=== PATIENT | female | born 1975 | race Caucasian/White ===

== ENCOUNTER 2018-02-26 17:39 | Emergency (ER) | payer OTHER ==
[~2018-02-26] VITALS: Ht 162.6 cm; Wt 72.6 kg
[~2018-02-26 17:39] MED LIST: ALBU90OI INH; BUTASPCAFT PO; CEPH500 PO; CETI10 PO; CITA20 PO; CODACE30 PO; CODBUTASA; CODBUTASA PO; DIET PILL; DOXY100 PO; FERR160 PO; FEXO60; FEXPSEER; HYDACE5 PO; HYDGUAL120 PO; IBUP400 PO; IRON PILLS; METO50ER PO; MOXI400 PO; MULVITMINE; MULVITMINF PO; NAPR500 PO; OMEP20ER PO; OXYACE5T PO; OXYACE7.5T PO; PHENA200 PO; PRED10 PO; Polytrim Eye Dr10 ML BOTHEYES; Prednisone20 MG PO; RXCODACET PO; RXDIPHSY PO; RXHYDACE PO; RXPHEN200 PO; SULTRIDS PO; TOBDEXOPSU OP; VIMOVO PO; ZOLP5 PO; [UNRECOGNIZED DRUG - OTHER] PO
== END 2018-02-26 18:39 | disposition home or self-care (01) ==
LOC: ER 17:39
DX: S61.213A Laceration without foreign body of left middle finger without damage to nail, initial encounter (principal); Z23 Encounter for immunization; I10 Essential (primary) hypertension; Z88.5 Allergy status to narcotic agent; Z88.1 Allergy status to other antibiotic agents; Z79.899 Other long term (current) drug therapy; Z87.891 Personal history of nicotine dependence; W28.XXXA Contact with powered lawn mower, initial encounter
CPT/HCPCS: 12001; 90471; 90714; 99283

== ENCOUNTER 2019-03-24 15:14 | Emergency (ER) | payer OTHER ==
[~2019-03-24] VITALS: Ht 162.6 cm; Wt 74.8 kg
[~2019-03-24 15:14] MED LIST changes: +AMIT50 PO; +DUOFER 28 MG TA28 MG PO; +Echinacea400 MG PO; +MAGNESIUM400 MG PO; +VERA180ERB PO
[2019-03-24] MEDS ORDERED: NEOSPORIN + P14.2 GM TOP (15:46)
[2019-03-24] MEDS ORDERED: CEPH500 PO (15:46)
== END 2019-03-24 15:57 | disposition home or self-care (01) ==
LOC: ER 15:14
DX: L01.00 Impetigo, unspecified (principal); Z88.5 Allergy status to narcotic agent; Z88.8 Allergy status to other drugs, medicaments and biological substances; Z88.1 Allergy status to other antibiotic agents; Z79.899 Other long term (current) drug therapy; Z79.82 Long term (current) use of aspirin; I10 Essential (primary) hypertension; Z87.891 Personal history of nicotine dependence
CPT/HCPCS: 99283

== ENCOUNTER 2021-06-05 20:05 | Inpatient (IN) | payer OTHER ==
[~2021-06-05] VITALS: Ht 162.6 cm; Wt 104.3 kg
[~2021-06-05 20:05] MED LIST changes: +MAGNESIUM OXID500 MG PO; -MAGNESIUM400 MG PO; +NEOSPORIN + P14.2 GM TOP
[2021-06-05 20:33] LABS: BASOPHILS ABSOLUTE AUTO 0.04 K/mm3 (0.00-0.23); BASOPHILS PERCENT AUTO 1 % (0-2); EOSINOPHILS PERCENT AUTO 0 % (0-6); Hematocrit 39.1 % (33.0-51.0); Hemoglobin 13.3 g/dL (11.5-16.0); IMMATURE GRAN PERCENT AUTO 4 % (0-1); LYMPHOCYTES ABSOLUTE AUTO 0.95 K/mm3 (0.84-5.20); LYMPHOCYTES PERCENT AUTO 18 % (21-46); MONOCYTES ABSOLUTE AUTO 0.49 K/mm3 (0.16-1.47); MONOCYTES PERCENT AUTO 10 % (4-13); Mean Corpuscular HGB 29.2 pg (26.0-34.0); Mean Corpuscular Volume 86 fL (80-100); NEUTROPHILS ABSOLUTE AUTO 3.47 K/mm3 (1.96-9.15); NEUTROPHILS PERCENT AUTO 67 % (41-73); Platelet Count 212 K/mm3 (150-400); RDW Standard Deviation 38.1 fL (35.1-46.3); Red Blood Cell Count 4.56 M/mm3 (3.80-5.20); White Blood Cell Count 5.15 K/mm3 (4.00-11.30)
[2021-06-05 20:53] LABS: Alanine Aminotransfer (ALT/SGP 124 U/L (12-78); Albumin, Blood 2.7 g/dL (3.4-5.0); Albumin/Globulin Ratio 0.6 (0.8-1.8); Alk Phos 200 U/L (50-136); Anion Gap 7 mmol/L (6-16); Aspartate Aminotrans (AST/SGOT 115 U/L (12-37); Bilirubin, Total 0.3 mg/dL (0.1-1.0); Blood Urea Nitrogen 16 mg/dL (8-24); CO2, Blood 26 mmol/L (21-32); Chloride, Blood 104 mmol/L (98-108); Creatinine, Blood 0.64 mg/dL (0.40-1.00); Globulin, Blood 4.3 g/dL (2.2-4.0); Glomerular Filtration Rate >60 (60-); Glucose, Blood 99 mg/dL (70-99); Potassium, Blood 3.7 mmol/L (3.5-5.5); Sodium, Blood 137 mmol/L (136-145); Troponin I <0.015 ng/mL (0.000-0.040)
[2021-06-05] MEDS ORDERED: CEFUROXIME SOD1.5 GM (21:08)
[2021-06-05] MEDS ORDERED: CITALOPRAM HBR20 M3 PO (21:23)
[2021-06-05] MEDS ORDERED: AMITRIPTYLINE H25 MG PO (21:23)
[2021-06-05] MEDS ORDERED: METO50ER PO (21:23)
[2021-06-05] MEDS ORDERED: ZYRTEC10 M4 PO (21:24)
[2021-06-05] MEDS ORDERED: BUTALBITAL COM1 EACH PO (21:25)
--- NOTE | 2021-06-06 19:57 | NUR ---
PT ADMITTED FROM ED 1045 FROM ED. PT SLIDE TX TO BED. ORIENTED TO ROOM SET UP AND CALL LIGHT.
--- NOTE | 2021-06-06 19:59 | NUR ---
SUMMARY- PT A/OX4. KNOWS LIMITS. USES CALL LIGHT. USING BEDPAN BECAUSE PT HAVING SEVERE EXERTIONAL DYSPNEA. LUNGS WITH DIM BASES, FEELS LIKE A HUGE BUBBLE IN THE CENTER OF HER CHEST IS CAUGHT. OXYMIZER 10L, SATS 95%, BROUGHT DOWN TO 8L. TOLERATING FOOD AND FLUIDS. DENIES PAIN ALTHOUGH TAKES NAPROXYN AM AND PM FOR GEN BODY PAIN. DR CLOUD BY TO MANAS PT APPROX 1600. TELE SR 80'S. REPORTED TO RICARDO MARTÍNEZ.
[2021-06-06] MEDS ORDERED: CEFU500T30 PO (23:38)
[2021-06-06] MEDS ORDERED: Guaifenesin Wit10 ML PO (23:40)
--- NOTE | 2021-06-06 23:52 | NUR ---
2051 PT LYING IN BED, REPORTS PAIN IN CHEST R/T COUGH AND PAIN IN JOINTS R/T CHRONIC CONDITION OF 5/10, WILL MEDICATE AND EVAL FOR EFFECT. REPORTS A LITTLE SOB THAT INCREASES WITH EXERTION, ON 8L O2 VIA OXIMIZER AT 94%. NO OTHER APPARENT SIGNS OF DISTRESS. CALL LIGHT IS IN REACH.
--- NOTE | 2021-06-07 00:56 | NUR ---
PT LYING IN BED, EYES CLOSED, APPEARS TO BE RESTING. BREATHING IS EVEN, UNLABORED. NO APPARENT SIGNS OF DISTRESS. CALL LIGHT IS IN REACH.
--- NOTE | 2021-06-07 02:47 | NUR ---
0230 PT LYING IN BED, AWAKE, DENIES NEED FOR ANYTHING AT THIS TIME. NO APPARENT SIGNS OF DISTRESS. CALL LIGHT IS IN REACH.
--- NOTE | 2021-06-07 04:20 | NUR ---
PT LYING IN BED, EYES CLOSED, APPEARS TO BE RESTING. BREATHIG IS EVEN, UNLABORED. NO APPARENT SIGNS OF DISTRESS. CALL LIGHT IS IN REACH.
--- NOTE | 2021-06-07 04:20 | NUR ---
PT IS AAO X 4, ON OXIMIZER WITH 86 O2 AT 92%. PT REPORTS A LITTLE SOB THAT INCREASES WITH EXERTION. PT REPORTED CHEST PAIN R/T TO COUGH AND CHRONIC JOINT PAIN. PT GOT NAPROSYN AND MINNIESIN AT HS. TELE NSR. BS WAS 124.
--- NOTE | 2021-06-07 05:43 | NUR ---
PT LYING IN BED, EYES CLOSED, APPEARS TO BE RESTING. BREATHING IS EVEN, UNLABORED. NO APPARENT SIGNS OF DISTRESS. CALL LIGHT IS IN REACH. NO OTHER CHANGES THIS SHIFT.
--- NOTE | 2021-06-07 19:15 | NUR ---
DAFNE- PT A/O X4, USES CALL LIGHT. UP TO BSC TODAY TO VOID. DESATS INTO MID 80'S WITH ACTIVITY OR COUGHING EPISODES. LUNGS CRACKLES IN THE BASES, OXIMYZER DOWN FROM 8-6 AT 0745, HAS BEEN 91-94% EXCEPT WITH DESAT WITH ACTIVITY. PT HAS LITTLE ENERGY AND SLOW MOVING BUT ADQ STRENGTH FOR STANDING. TOLERATING FOOD AND FLUIDS, STATES SLIGHT DECREASE IN APPETITE. URINE CONCENTRATED THIS AM, ENC PO FLUIDS, AND CONSUMED HOT TEA AND LEMONAID T/O THE DAY. PT UNABLE TO LAY PRONE RELATED TO BACK ISSUES. CHRONIC JOINT PAIN CONTROLLED WITH NAPARSYN. COUGH MED/ ROBITUSSIN GIVEN ONCE THIS AFTERNOON.
--- NOTE | 2021-06-07 21:43 | NUR ---
2021 PT LYING IN BED, REPORTS A LITTLE SOB THAT INCREASES WITH EXERTION, ON 6L VIA OXIMIZER AT 91%. REPORTS EXHAUSTION. BS WAS 155. TELE NSR AT 81. NO OTHER APPARENT SIGNS OF DISTRESS. CALL LIGHT IS IN REACH.
--- NOTE | 2021-06-07 23:07 | NUR ---
PT LYING IN BED, EYES CLOSED, APPEARS TO BE RESTING. BREATHING IS EVEN, UNLABORED. NO APPARENT SIGNS OF DISTRESS. CALL LIGHT IS IN REACH.
--- NOTE | 2021-06-08 00:12 | NUR ---
PT LYING IN BED, EYES CLOSED, APPEARS TO BE RESTING. BREATHING IS EVEN, UNLABORED. NO APPARENT SIGNS OF DISTRESS. CALL LIGHT IS IN REACH.
--- NOTE | 2021-06-08 01:59 | NUR ---
PT LYING IN BED, EYES CLOSED, APPEARS TO BE RESTING. BREATHING IS EVEN, UNLABORED. NO APPARENT SIGNS OF DISTRESS. CALL LIGHT IS IN REACH.
--- NOTE | 2021-06-08 03:27 | NUR ---
PT LYING IN BED, EYES CLOSED, APPEARS TO BE RESTING. WAKES EASILY TO VERBAL STIMULI. NO APPARENT SIGNS OF DISTRESS. CALL LIGHT IS IN REACH.
--- NOTE | 2021-06-08 03:29 | NUR ---
PT IS AAO X 4, ON 6L OXIMIZER AT 91%. A LITTLE SOB THAT INCREASES WITH EXERTION. TELE NSR. BS 155.
--- NOTE | 2021-06-08 19:46 | NUR ---
a+o, medicated as prescribed, oximizer on 6 L, call light in reach, report shared with noc nurse
--- NOTE | 2021-06-09 04:52 | NUR ---
TRANSMITTER SUPERVISOR SUMMARY NO ACUTE CHANGES THIS SHIFT. PT AAOX4 AND PLEASANT. CALLS APPROPRIATELY FOR ASSISTANCE. REMAINS ON 6L O2 VIA OXYMIZER SATTING MID 90'S. PT DOES DESAT TO 80'S WHEN GETTING UP TO BSC. CBG 130 AT BEDTIME. VSS, WILL CONTINUE TO MONITOR.
--- NOTE | 2021-06-09 16:49 | NUR ---
SHIFT SUMMARY PT NEEDING ASSIST WITH TRANSFER TO COMMODE. BECOMES VERY WINDED AND TIRED WITH ANY ACTIVITY. STATES SHE STRUGGLES TO LAY ON HER SIDE DUE TO INCREASE IN SHORTNESS OF BREATH. CONTINUOUS PULSE OX WITH BLUE TOOTH SATS IN LOW 90'S ON 6L/M BY OXIMIZER BUT DOES DROP TO MID 80'S WITH ANY ACTIVITY. HAS A COUGH THAT IS NON PRODUCTIVE BUT MOIST.
--- NOTE | 2021-06-10 04:53 | NUR ---
FUSING MACHINE FEEDER SUMMARY NO ACUTE CHANGES THIS SHIFT. PT REMAINS ON 9L O2 VIA OXYMIZER. SATS HAVE MAINTAINED >90% THROUGH THE NIGHT WITH A SLIGHT DESAT TO HIGH 80'S WHEN GETTING UP TO BSC. WILL CONTINUE TO MONITOR.
[2021-06-10 05:26] LABS: BASOPHILS ABSOLUTE AUTO 0.06 K/mm3 (0.00-0.23); BASOPHILS PERCENT AUTO 1 % (0-2); EOSINOPHILS ABSOLUTE AUTO 0.05 K/mm3 (0.00-0.68); EOSINOPHILS PERCENT AUTO 1 % (0-6); Hematocrit 37.9 % (33.0-51.0); Hemoglobin 12.6 g/dL (11.5-16.0); IMMATURE GRAN ABSOLUTE AUTO 0.63 K/mm3 (0.00-0.10); IMMATURE GRAN PERCENT AUTO 10 % (0-1); LYMPHOCYTES PERCENT AUTO 17 % (21-46); MONOCYTES ABSOLUTE AUTO 0.43 K/mm3 (0.16-1.47); MONOCYTES PERCENT AUTO 7 % (4-13); Mean Corpuscular HGB 28.8 pg (26.0-34.0); Mean Corpuscular HGB Conc 33.2 g/dL (31.5-36.5); Mean Corpuscular Volume 87 fL (80-100); Mean Platelet Volume 9.1 fL (9.1-12.4); NEUTROPHILS ABSOLUTE AUTO 4.28 K/mm3 (1.96-9.15); NEUTROPHILS PERCENT AUTO 65 % (41-73); Platelet Count 324 K/mm3 (150-400); RDW Standard Deviation 38.1 fL (35.1-46.3); Red Blood Cell Count 4.38 M/mm3 (3.80-5.20); White Blood Cell Count 6.55 K/mm3 (4.00-11.30)
[2021-06-10 05:46] LABS: Anion Gap 5 mmol/L (6-16); Blood Urea Nitrogen 19 mg/dL (8-24); Bun/Creatinine Ratio 30.4 (12.0-20.0); CO2, Blood 27 mmol/L (21-32); Calcium, Blood 8.7 mg/dL (8.5-10.1); Chloride, Blood 105 mmol/L (98-108); Creatinine, Blood 0.62 mg/dL (0.40-1.00); Glomerular Filtration Rate >60 (60-); Glucose, Blood 97 mg/dL (70-99); Potassium, Blood 3.8 mmol/L (3.5-5.5); Sodium, Blood 137 mmol/L (136-145)
[2021-06-10 05:52] LABS: BAND PERCENT MAN 1 % (0-8); BASOPHILS PERCENT MAN 0 % (0-2); EOSINOPHILS ABSOLUTE MAN 0.06 K/mm3 (0.00-0.68); EOSINOPHILS PERCENT MAN 1 % (0-6); LYMPHOCYTES ABSOLUTE MAN 1.37 K/mm3 (0.84-5.20); LYMPHOCYTES PERCENT MAN 21 % (21-46); MONOCYTES ABSOLUTE MAN 0.19 K/mm3 (0.16-1.47); MONOCYTES PERCENT MAN 3 % (4-13); MYELOCYTE ABSOLUTE MAN 0.39 K/mm3 (0.00-0.00); MYELOCYTE PERCENT MAN 6 % (0-0); NEUTROPHILS ABSOLUTE MAN 4.51 K/mm3 (1.96-9.15); SEG NEUTROPHILS PERCENT MAN 68 % (41-73); TOTAL CELLS COUNTED 100
--- NOTE | 2021-06-10 11:00 | NUR ---
Spiritual Care visit provided. Pt is struggling with what she feels is setback physically. I encouraged her and reinforced that she is in the right place: it is her daughter's 13th birthday today so she is missing her family. I was able to pray for her recovery and that when she was able to go home, there would be a double celebration for her return and her daughter's birthday.
--- NOTE | 2021-06-10 18:14 | NUR ---
PT IS A/OX4, PLEASANT AND COOPERATIVE. THE PT IS UP WITH ASSIST TO THE BSC BECAUSE OF WEAKNESS AND SOB. THE PT'S O2 HAS BEEN TITRATED DOWN TO 7L/MIN FROM 15L/MIN THIS AFTERNOON. PT DESATS WITH MINIMAL ACTIVITY BUT RECOVERS FAIRLY QUIKLY. PT DENIED ANY PAIN THIS SHIFT. CALL LIGHT IN REACH, WILL CONTINUE TO MONITOR AND ASSESS FOR CHANGES
--- NOTE | 2021-06-11 06:39 | NUR ---
SHIFT SUMMARY- PT. ON 7L OXYMIZER, DESATS W/ACTIVIY. HAD NO COMPLAINTS OF PAIN OR DISCOMFORT DURING THE NIGHT. NOSEBLEED THIS AM, PT. STATED DUE TO DRYNESS. USES BSC W/1PA. DENIES ANY NEEDS AT THIS TIME. CALL LIGHT WITHIN REACH AND SIDE RAILS UPX2. WILL CONT TO MONITOR.
--- NOTE | 2021-06-11 18:32 | NUR ---
PT IS A/OX3, PLEASANT AND COOPERATIVE. THE PT IS UP WITH MINIMAL ASSIT TO THE BSC. THE PT CONTINUES TO BE VERY WEAK ON HER FEET AND O2 SAT'S DROP TO MID 80'S. AT REST THE PT APPEARS TO BE BREATHING EASILY STILL REQUIRING 7/MIN O2 VIA OXYMIZER AT THIS TIME. PT DENIED ANY PAIN T/O THE DAY. CALL LIGHT IN REACH WILL CONTINUE TO MONITOR AND ASSESS FOR CHANGES.
--- NOTE | 2021-06-12 05:43 | NUR ---
SHIFT SUMMARY- NO ACUTE EVENTS OVERNIGHT. PT. RESTED QUIETLY T/O THE NIGHT, NO APPARENT DISTRESS NOTED. REMAIND ON 7L OXYMIZER, VSS. CALL LIGHT WITHIN REACH AND SIDE RAILS UPX2. WILL CONT TO MONITOR.
--- NOTE | 2021-06-12 16:27 | NUR ---
PT IS A/OX4, PLEASANT AND COOPERATIVE. THE PT IS UP WITH MINIMAL ASSIST TO THE BSC DUE TO FEELING WEAK ON HER FEET. THE PTS'S O2 SAT'S TODAY HAVE BEEN CONSITANTLY IN THE MID 90'S ON 7L/MIN O2 VIA OXYMIZER. THE PT DID NOT WANT TO TRY TO TITRATE DOWN ANYMORE TODAY. THE PT DOES DROP INTO THE MID 80'S WITH MINIMAL ACTIVITY. THE PT WAS GIVEN NASAL SPRAY TODAY FOR NASAL CONGESTION AND DRYNESS. CALL LIGHT IN REACH. WILL CONTINUE TO MONITOR AND ASSESS FOR CHANGES
[2021-06-13 06:15] LABS: Anion Gap 6 mmol/L (6-16); Blood Urea Nitrogen 25 mg/dL (8-24); Bun/Creatinine Ratio 36.7 (12.0-20.0); CO2, Blood 26 mmol/L (21-32); Calcium, Blood 8.9 mg/dL (8.5-10.1); Chloride, Blood 106 mmol/L (98-108); Creatinine, Blood 0.68 mg/dL (0.40-1.00); Glomerular Filtration Rate >60 (60-); Glucose, Blood 89 mg/dL (70-99); Sodium, Blood 138 mmol/L (136-145)
--- NOTE | 2021-06-13 06:37 | NUR ---
SHIFT SUMMARY- PT. HAD NO ACUTE EVENTS OVERNIGHT. REMAINS ON 7L OXYMIZER, SATS MAINTAINED. PT. SLEPT MOST OF THE NIGHT, NO APPARENT DISTRESS NOTED. VSS. CALL LIGHT WITHIN REACH AND SIDE RAILS UPX2. WILL CONT TO MONITOR.
--- NOTE | 2021-06-13 18:13 | NUR ---
SHIFT SUMMARY PT REMAINS ON 7 L/MIN OXYMIZER AND DESATS c EXERTION. SATING 94% @ REST. A&O, DENIES ANY DISTRESS. NO ACUTE CHANGES. GOOD ORAL INTAKE. CALL LIGHT WITHIN REACH CALLS APPROPRIATELY.
--- NOTE | 2021-06-14 06:39 | NUR ---
SHIFT SUMMARY- NO ACUTE EVENTS OVERNIGHT. PT. ON 7L OXYMIZER, OFFERED TO TITRATE O2. PT. REFUSED, STATED PREFERRED TO WAIT UNITL TODAY. SLEPT T/O THE NIGHT, NO APPARENT DISTRESS NOTED. CALL LIGHT WITHIN REACH AND SIDE RAILS UPX2. WILL CONT TO MONITOR.
--- NOTE | 2021-06-14 17:55 | NUR ---
SHIFT SUMMARY NO ACUTE CHANGES, DENIES DISTRESS, A&O. REMAINS ON 7 L/MIN OXYMIZER, PT NERVOUS TO TITRATE O2 DUE TO DESATING c AMBULATION. PT IS NOW INDEPENDENT TO BS AND TOLERATING THIS ACTIVITY WELL. WILL CONTINTUE TO ATTEMPT TO TITRATE O2. GOOD ORAL INTAKE. CALL LIGHT WITHIN REACH, CALLS APPROPRIATELY.
--- NOTE | 2021-06-14 19:30 | NUR ---
ASSUMED CARE RECEIVED REPORT FROM TANYA B[place]MINGHAM. PT RESTING, IN NAD. NO ACUTE NEEDS ASSESSED. CALL LIGHT, POSSESSIONS IN REACH, BED IN LOW AND LOCKED POSITON. WCTM.
--- NOTE | 2021-06-15 08:06 | NUR ---
SHIFT SUMMARY PT RESTING, IN NAD. APPEARED TO SLEEP WELL T/O NIGHT. VS REVIEWED,WNL; O2 SATS WNL ON 7L/OXYMIZER. NO ACUTE CONCERNS TO REPORT OVERNIGHT. CALL LIGHT, POSSESSIONS IN REACH, BED IN LOW AND LOCKED POSITION. REPORT GIVEN TO TANYA MILLER.
--- NOTE | 2021-06-15 19:23 | NUR ---
The patient is A/OX4 TO PERSON, PLACE, TIME AND EVENT. SHE IS VERY COOPERATIVE WITH HER CARE, SHE HAS BEEN WORKING ON AMBULATING AND USING HER INSENTIVE SPIROMETER. She has been titrated from 5lpm oxymizer to 3.5lpm ns and spo2 >95% thoughout the day. She is independent in the room. She has not had any acute changes this shift. She is lying on her bed watching tv.
--- NOTE | 2021-06-16 05:59 | NUR ---
SUMMARY: PT A/OX4, INDEPENDENT IN ROOM AND CALLS APPROPRIATELY TO SPECIFY NEEDS. SPO2 REMAINS WNL ON 3.5L NC W/OCC DESATS TO 80'S% NOTED UPON EXERTION NOTED. I/S ENCOURAGED WA. PT USED BSC BY SELF W/O DISTRESS. SHE DENIED PAIN AND ALL OTHER COMPLAINTS. VSS/AFEBRILE, NO ACUTE CHANGES. WCTM AND REPORT TO DAY RN.
--- NOTE | 2021-06-16 18:11 | NUR ---
Shift Summary, The patient is A/OX4 To person, place, time and event. The patient is very cooperative and active in her care. She has been tracking the progress of her IS and she has been exercising in the bed. She has been titrated down from 3.5 lpm to 2lpm and SP02 >95%. We have set a goal to try to dc the nc and remain on RA WITH SPO2>95%. The patient is a one person stand by assist to the BSC. She worked with Physical therapy and they said she was able to maintain spo2 while walking around the room. Her Affect has brightened thoughout the day and she stated she feels better. Currently she is sitting in her bed eating her dinner.
--- NOTE | 2021-06-17 06:01 | NUR ---
SUMMARY: PT A/OX4, INDEPENDENT IN ROOM AND CALLS APPROPRIATELY TO SPECIFY NEEDS. PT TOLERATED RA T/O NOCTE W/O S/S DESATS OR DYSPNEA THIS SHIFT. I/S AND PRONE LYING ENCOURAGED. CONT BIOX INTACT, SPO2>92%. NO ACUTE CHANGES, VSS/AFEBRILE.
--- NOTE | 2021-06-17 14:13 | NUR ---
HOME 02 EVAL PATIENT OXYGEN SATURATION RECLINING IN BED 91% ON 2.5/LPM NC. PATIENT REQUIRING 6/LPM TO MAINTAIN OXYGEN SATURATION ABOVE 90% WHILE SITTING ON EDGE OF BED. PATIENT OXYGEN SATURATION DROPPED TO 87% WHEN ATTEMPTING TO AMBULATE WITH 6/LPM NC. PATIENT WAS DIZZY QITH UNSTEADY GAIT AND REQUESTED TO RETURN TO BED.
--- NOTE | 2021-06-17 18:09 | NUR ---
SHIFT SUMMARY PT AXO, PLEASANT AND COOPERATIVE WITH CARE. 82% ON RA, 92% ON 2.5L VIA NC. DESATS WITH EXERTION. PT STATES SHE WAS TOO WEAK FOR DISCHARGE. SEE O2 EVAL VIA RT. PT DENIES PAIN AND NV. BED IN LOW POSITION, CALL LIGHT WITHIN REACH. INDEPENDENT IN THE ROOM.
--- NOTE | 2021-06-17 19:20 | NUR ---
ASSUMED CARE RECEIVED REPORT FROM TANYA SANTIZO. PT RESTING, IN NAD. NO ACUTE NEEDS ASSESSED AT THIS TIME. CALL LIGHT, POSSESSIONS IN REACH, BED IN LOW AND LOCKED POSITION.
[2021-06-18 05:15] LABS: BASOPHILS ABSOLUTE AUTO 0.04 K/mm3 (0.00-0.23); BASOPHILS PERCENT AUTO 0 % (0-2); EOSINOPHILS ABSOLUTE AUTO 0.06 K/mm3 (0.00-0.68); EOSINOPHILS PERCENT AUTO 1 % (0-6); Hematocrit 37.9 % (33.0-51.0); Hemoglobin 12.5 g/dL (11.5-16.0); IMMATURE GRAN ABSOLUTE AUTO 0.44 K/mm3 (0.00-0.10); IMMATURE GRAN PERCENT AUTO 3 % (0-1); LYMPHOCYTES ABSOLUTE AUTO 2.78 K/mm3 (0.84-5.20); LYMPHOCYTES PERCENT AUTO 21 % (21-46); MONOCYTES ABSOLUTE AUTO 1.03 K/mm3 (0.16-1.47); MONOCYTES PERCENT AUTO 8 % (4-13); Mean Corpuscular HGB 28.9 pg (26.0-34.0); Mean Corpuscular Volume 88 fL (80-100); Mean Platelet Volume 9.1 fL (9.1-12.4); NEUTROPHILS ABSOLUTE AUTO 8.65 K/mm3 (1.96-9.15); NEUTROPHILS PERCENT AUTO 67 % (41-73); Platelet Count 517 K/mm3 (150-400); RDW Coefficient Variation 12.9 % (11.7-14.2); RDW Standard Deviation 41.6 fL (35.1-46.3); Red Blood Cell Count 4.32 M/mm3 (3.80-5.20)
[2021-06-18 05:40] LABS: Anion Gap 6 mmol/L (6-16); Blood Urea Nitrogen 24 mg/dL (8-24); Bun/Creatinine Ratio 30.9 (12.0-20.0); CO2, Blood 29 mmol/L (21-32); Calcium, Blood 9.2 mg/dL (8.5-10.1); Chloride, Blood 105 mmol/L (98-108); Creatinine, Blood 0.78 mg/dL (0.40-1.00); Glomerular Filtration Rate >60 (60-); Glucose, Blood 89 mg/dL (70-99); Phosphorus, Blood 4.2 mg/dL (2.5-4.9); Potassium, Blood 4.2 mmol/L (3.5-5.5); Sodium, Blood 140 mmol/L (136-145)
--- NOTE | 2021-06-18 07:44 | NUR ---
VICE SQUAD POLICE OFFICER SUMMARY PT RESTING, IN NAD. NO ACUTE CHANGES TO REPORT OVERNIGHT, VS REVIEWED,WNL. O2 SATS STABLE ON 2L/NC. NO ACUTE CONCERNS TO REPORT OVERNIGHT. CALL LIGHT, POSSESSIONS IN REACH, BED IN LOW AND LOCKED POSITION. REPORT GIVEN TO TANYA KIM.
[2021-06-18] MEDS ORDERED: Acetaminophen650 M1 PO (15:05)
[2021-06-18] MEDS ORDERED: GUAI600T33 PO (15:13)
[2021-06-18] MEDS ORDERED: ROBITUSSIN DM PO (15:13)
[2021-06-18] MEDS ORDERED: NASAL SPRAY88 ML (15:16)
--- NOTE | 2021-06-18 16:13 | NUR ---
DISCHARGE DISCHARGE INSTRUCTIONS, MEDICATION LIST AND FOLLOW UP APPOINTMENT REVIEWED WITH PT. QUESTIONS/CONCERNS ANSWERED. PT VERBALLY INDICATED UNDERSTANDING OF ALL INSTRUCTIONS RECEIVED. ESCORTED OUT VIA W/C BY JIMENEZ
== END 2021-06-18 15:38 | disposition home health service (06) | DRG 177 ==
LOC: ER 20:05 → ERHOLD 21:23 → MEDS 06-06 10:11 → ENPENDDIS 06-17 17:46 → MEDS 06-18 15:38
PROVIDERS: Internal Medicine; Nurse Practitioner Acute Care; Physician Assistant; ADMIT Internal Medicine
PROC: 3E0333Z Introduction of Anti-inflammatory into Peripheral Vein, Percutaneous Approach (ICD-10-PCS; principal; 2021-06-05)
PROC: 8E0ZXY6 Isolation (ICD-10-PCS; 2021-06-05)
DX: U07.1 COVID-19 (principal); J12.82 Pneumonia due to coronavirus disease 2019; J96.01 Acute respiratory failure with hypoxia; R53.82 Chronic fatigue, unspecified; R04.0 Epistaxis; G43.909 Migraine, unspecified, not intractable, without status migrainosus; G89.29 Other chronic pain; M54.9 Dorsalgia, unspecified; K21.9 Gastro-esophageal reflux disease without esophagitis; F32.9 Major depressive disorder, single episode, unspecified; R00.2 Palpitations; I10 Essential (primary) hypertension; Z88.5 Allergy status to narcotic agent; Z88.1 Allergy status to other antibiotic agents; Z88.8 Allergy status to other drugs, medicaments and biological substances; Z90.89 Acquired absence of other organs; Z79.82 Long term (current) use of aspirin; Z79.899 Other long term (current) drug therapy
CPT/HCPCS: 36415; 71045; 71260; 80048; 80053; 82947; 83880; 84100; 84484; 85025; 85379; 93005; 93010; 94762; 96374; 96376; 97110; 97161; 97530; 99285-25; A9270; C9113; J1100; J1650; J2405; Q9967

== ENCOUNTER 2022-03-19 16:41 | Emergency (ER) | payer OTHER ==
[~2022-03-19] VITALS: Ht 160 cm; Wt 68.0 kg
[~2022-03-19 16:41] MED LIST changes: +AMITRIPTYLINE H25 MG PO; +Acetaminophen650 M1 PO; +BUTALBITAL COM1 EACH PO; +CEFU500T30 PO; +CEFUROXIME SOD1.5 GM; +CITALOPRAM HBR20 M3 PO; +GUAI600T33 PO; +Guaifenesin Wit10 ML PO; +NASAL SPRAY88 ML; +ROBITUSSIN DM PO; +ZYRTEC10 M4 PO
[2022-03-19] MEDS ORDERED: AMOCLA875 PO (19:33)
== END 2022-03-19 19:46 | disposition home or self-care (01) ==
LOC: ER 16:41
DX: J01.91 Acute recurrent sinusitis, unspecified (principal); I10 Essential (primary) hypertension; Z87.891 Personal history of nicotine dependence
CPT/HCPCS: 99282

== ENCOUNTER 2023-05-07 18:45 | Emergency (ER) | payer OTHER ==
[~2023-05-07] VITALS: Ht 160 cm; Wt 70.3 kg
[~2023-05-07 18:45] MED LIST changes: +AMOCLA875 PO
[2023-05-07 19:28] LABS: Source, Urine Clean Catch
[2023-05-07 19:34] LABS: Appearance, Urine Hazy (Clear); Bilirubin, Urine Neg (Neg); Blood, Urine Neg (Neg); Color, Urine Yellow (P-Yellow); Glucose Qualitative, Urine Neg (Neg); Ketones, Urine Neg (Neg); Leukocyte Esterase, Urine 1+ (Neg); Nitrite, Urine Neg (Neg); Protein, Urine Neg (Neg); Urobilinogen, Urine NORM (Normal)
[2023-05-07 19:36] LABS: BASOPHILS ABSOLUTE AUTO 0.04 K/mm3 (0.00-0.23); BASOPHILS PERCENT AUTO 1 % (0-2); EOSINOPHILS PERCENT AUTO 1 % (0-6); Hematocrit 40.2 % (33.0-51.0); Hemoglobin 13.7 g/dL (11.5-16.0); IMMATURE GRAN ABSOLUTE AUTO 0.03 K/mm3 (0.00-0.10); IMMATURE GRAN PERCENT AUTO 0 % (0-1); LYMPHOCYTES ABSOLUTE AUTO 1.93 K/mm3 (0.84-5.20); LYMPHOCYTES PERCENT AUTO 24 % (21-46); MONOCYTES ABSOLUTE AUTO 0.53 K/mm3 (0.16-1.47); MONOCYTES PERCENT AUTO 6 % (4-13); Mean Corpuscular HGB 29.9 pg (26.0-34.0); Mean Corpuscular HGB Conc 34.1 g/dL (31.5-36.5); Mean Corpuscular Volume 88 fL (80-100); Mean Platelet Volume 9.5 fL (9.1-12.4); NEUTROPHILS ABSOLUTE AUTO 5.59 K/mm3 (1.96-9.15); NEUTROPHILS PERCENT AUTO 68 % (41-73); Platelet Count 308 K/mm3 (150-400); RDW Coefficient Variation 12.7 % (11.7-14.2); RDW Standard Deviation 41.2 fL (35.1-46.3); Red Blood Cell Count 4.58 M/mm3 (3.80-5.20); White Blood Cell Count 8.22 K/mm3 (4.00-11.30)
[2023-05-07 19:59] LABS: Albumin, Blood 3.8 g/dL (3.4-5.0); Albumin/Globulin Ratio 1.3 (0.8-1.8); Bilirubin, Total 0.2 mg/dL (0.1-1.0); Bun/Creatinine Ratio 33.2 (12.0-20.0); Calcium, Blood 9.1 mg/dL (8.5-10.1); Creatinine, Blood 0.75 mg/dL (0.40-1.00); Potassium, Blood 4.1 mmol/L (3.5-5.5); Total Protein, Blood 6.8 g/dL (6.4-8.2)
[2023-05-07 20:00] LABS: Amorphous Mod (0-Heavy); Bacteria Few /hpf; Red Blood Cells, Urine Not Seen /hpf (0-2); Squamous Epithelial Cells Few /hpf (Few); White Blood Cells, Urine 0-2 /hpf (0-5)
[2023-05-07] MEDS ORDERED: DOC250 PO (21:29)
[2023-05-07] MEDS ORDERED: DICY20 PO (21:29)
[2023-05-07 21:30] VITALS: BP 122/82
== END 2023-05-07 21:38 | disposition home or self-care (01) ==
LOC: ER 18:45
PROVIDERS: Student in an Organized Health Care Education/Training Program
DX: K59.00 Constipation, unspecified (principal); Z88.5 Allergy status to narcotic agent; Z88.8 Allergy status to other drugs, medicaments and biological substances; Z88.1 Allergy status to other antibiotic agents; Z79.899 Other long term (current) drug therapy; I10 Essential (primary) hypertension; K21.9 Gastro-esophageal reflux disease without esophagitis
CPT/HCPCS: 74177; 80053; 81001; 81025; 83690; 85025; 93005; 93010; 96374-59; 96375; 99284-25; J2405; J3010; Q9967

== ENCOUNTER 2023-06-19 15:08 | Emergency (ER) | payer OTHER ==
[~2023-06-19] VITALS: Ht 160 cm; Wt 72.6 kg
[~2023-06-19 15:08] MED LIST changes: +DICY20 PO; +DOC250 PO
[2023-06-19 15:26] VITALS: BP 146/82
== END 2023-06-19 18:10 | disposition home or self-care (01) ==
LOC: ER 15:08
DX: K20.90 Esophagitis, unspecified without bleeding (principal); R49.0 Dysphonia; I10 Essential (primary) hypertension; K21.9 Gastro-esophageal reflux disease without esophagitis; Z88.1 Allergy status to other antibiotic agents; Z88.5 Allergy status to narcotic agent; Z79.899 Other long term (current) drug therapy
CPT/HCPCS: 99282; A9270; J1100

== ENCOUNTER 2024-12-12 13:10 | Emergency (ER) | payer OTHER ==
[~2024-12-12] VITALS: Ht 160 cm; Wt 77.1 kg
[2024-12-12] MEDS ORDERED: Ondansetron HCl 2 MG / ML 2ML Vial IV ONE (14:15)
[2024-12-12] MEDS ORDERED: Ketorolac Tromethamine 30mg Vial IV ONE (14:15)
[2024-12-12 14:46] LABS: BASOPHILS ABSOLUTE AUTO 0.05 K/mm3 (0.00-0.23); BASOPHILS PERCENT AUTO 1 % (0-2); EOSINOPHILS PERCENT AUTO 2 % (0-6); Hematocrit 39.4 % (33.0-51.0); Hemoglobin 13.8 g/dL (11.5-16.0); IMMATURE GRAN ABSOLUTE AUTO 0.02 K/mm3 (0.00-0.10); IMMATURE GRAN PERCENT AUTO 0 % (0-1); LYMPHOCYTES ABSOLUTE AUTO 1.71 K/mm3 (0.84-5.20); LYMPHOCYTES PERCENT AUTO 30 % (21-46); MONOCYTES ABSOLUTE AUTO 0.37 K/mm3 (0.16-1.47); MONOCYTES PERCENT AUTO 7 % (4-13); Mean Corpuscular HGB 30.3 pg (26.0-34.0); Mean Corpuscular Volume 86 fL (80-100); Mean Platelet Volume 9.5 fL (9.1-12.4); NEUTROPHILS ABSOLUTE AUTO 3.44 K/mm3 (1.96-9.15); NEUTROPHILS PERCENT AUTO 60 % (41-73); Platelet Count 261 K/mm3 (150-400); RDW Coefficient Variation 12.4 % (11.7-14.2); RDW Standard Deviation 39.4 fL (35.1-46.3); Red Blood Cell Count 4.56 M/mm3 (3.80-5.20); White Blood Cell Count 5.69 K/mm3 (4.00-11.30)
[2024-12-12 15:03] LABS: Albumin, Blood 4.1 g/dL (3.4-5.0); Albumin/Globulin Ratio 1.4 (0.8-1.8); Bilirubin, Total 0.2 mg/dL (0.1-1.0); Calcium, Blood 9.4 mg/dL (8.5-10.1); Creatinine, Blood 0.69 mg/dL (0.40-1.00); Globulin, Blood 2.9 g/dL (2.2-4.0); Potassium, Blood 4.3 mmol/L (3.5-5.5)
[2024-12-12 15:44] LABS: Source, Urine Voided
[2024-12-12 15:52] LABS: Appearance, Urine Clear (Clear); Bilirubin, Urine Neg (Neg); Blood, Urine Neg (Neg); Color, Urine Yellow (P-Yellow); Glucose Qualitative, Urine Neg (Neg); Ketones, Urine Neg (Neg); Leukocyte Esterase, Urine 1+ (Neg); Nitrite, Urine Neg (Neg); Protein, Urine 1+ (Neg); Urobilinogen, Urine NORM (Normal)
[2024-12-12 16:12] LABS: Bacteria Rare /hpf; Red Blood Cells, Urine 0-2 /hpf (0-2); Squamous Epithelial Cells Rare /hpf (Few); White Blood Cells, Urine 0-2 /hpf (0-5)
[2024-12-12 16:20] VITALS: BP 134/85
[2024-12-12] MEDS ORDERED: IBUP600 PO (16:33)
[2024-12-12] MEDS ORDERED: Magnesium Citr296 ML PO (16:33)
== END 2024-12-12 16:50 | disposition home or self-care (01) ==
LOC: ER 13:10
PROVIDERS: Emergency Medicine
DX: R10.9 Unspecified abdominal pain (principal); I10 Essential (primary) hypertension; K21.9 Gastro-esophageal reflux disease without esophagitis; Z88.5 Allergy status to narcotic agent; Z88.9 Allergy status to unspecified drugs, medicaments and biological substances; Z88.1 Allergy status to other antibiotic agents; Z79.899 Other long term (current) drug therapy; Z79.1 Long term (current) use of non-steroidal anti-inflammatories (NSAID); Z79.891 Long term (current) use of opiate analgesic; Z79.83 Long term (current) use of bisphosphonates
CPT/HCPCS: 74177; 80053; 81001; 83690; 85025; 87086; 96374-59; 96375; 99284-25; J1885; J2405; Q9967

== ENCOUNTER 2025-06-07 14:11 | Emergency (ER) | payer OTHER ==
[~2025-06-07] VITALS: Ht 160 cm; Wt 78.0 kg
[~2025-06-07 14:11] MED LIST changes: +IBUP600 PO; +Magnesium Citr296 ML PO
[2025-06-07 14:37] LABS: BASOPHILS ABSOLUTE AUTO 0.06 K/mm3 (0.00-0.23); BASOPHILS PERCENT AUTO 1 % (0-2); EOSINOPHILS ABSOLUTE AUTO 0.10 K/mm3 (0.00-0.68); EOSINOPHILS PERCENT AUTO 2 % (0-6); Hematocrit 40.8 % (33.0-51.0); Hemoglobin 13.9 g/dL (11.5-16.0); IMMATURE GRAN ABSOLUTE AUTO 0.04 K/mm3 (0.00-0.10); IMMATURE GRAN PERCENT AUTO 1 % (0-1); LYMPHOCYTES ABSOLUTE AUTO 2.11 K/mm3 (0.84-5.20); LYMPHOCYTES PERCENT AUTO 33 % (21-46); MONOCYTES ABSOLUTE AUTO 0.50 K/mm3 (0.16-1.47); MONOCYTES PERCENT AUTO 8 % (4-13); Mean Corpuscular HGB Conc 34.1 g/dL (31.5-36.5); Mean Corpuscular Volume 86 fL (80-100); NEUTROPHILS ABSOLUTE AUTO 3.62 K/mm3 (1.96-9.15); NEUTROPHILS PERCENT AUTO 56 % (41-73); NRBC ABSOLUTE 0.00 K/mm3 (0.00-0.02); NRBC Auto 0.0 /100 WBC (0.0-0.2); Platelet Count 290 K/mm3 (150-400); RDW Coefficient Variation 12.4 % (11.7-14.2); RDW Standard Deviation 38.9 fL (35.1-46.3)
[2025-06-07 15:06] LABS: Alanine Aminotransfer (ALT/SGP 33.0 U/L (12-78); Albumin, Blood 3.5 g/dL (3.4-5.0); Albumin/Globulin Ratio 1.0 (0.8-1.8); Anion Gap 8.0 mmol/L (3-11); Aspartate Aminotrans (AST/SGOT 31.0 U/L (12-37); Bilirubin, Total 0.2 mg/dL (0.1-1.0); Blood Urea Nitrogen 22.0 mg/dL (8-24); CO2, Blood 23.0 mmol/L (21-32); Calcium, Blood 8.5 mg/dL (8.5-10.1); Chloride, Blood 109.0 mmol/L (98-108); Creatinine, Blood 0.82 mg/dL (0.40-1.00); Globulin, Blood 3.5 g/dL (2.2-4.0); Glucose, Blood 88.0 mg/dL (70-99); Potassium, Blood 4.1 mmol/L (3.5-5.5); Sodium, Blood 136.0 mmol/L (136-145); Total Protein, Blood 7.0 g/dL (6.4-8.2)
[2025-06-07 15:59] VITALS: BP 137/82
== END 2025-06-07 16:00 | disposition home or self-care (01) ==
LOC: ER 14:11
PROVIDERS: Emergency Medicine
DX: R00.2 Palpitations (principal); I10 Essential (primary) hypertension; M19.90 Unspecified osteoarthritis, unspecified site; K21.9 Gastro-esophageal reflux disease without esophagitis; Z90.49 Acquired absence of other specified parts of digestive tract; Z88.5 Allergy status to narcotic agent; Z88.8 Allergy status to other drugs, medicaments and biological substances; Z79.2 Long term (current) use of antibiotics; Z79.899 Other long term (current) drug therapy
CPT/HCPCS: 71046; 80053; 84484; 85025; 93005; 93010; 99285-25

== ENCOUNTER 2025-06-29 18:59 | Emergency (ER) | payer OTHER ==
[~2025-06-29] VITALS: Ht 162.6 cm; Wt 77.1 kg
[~2025-06-29 18:59] MED LIST changes: +CYCL10 PO; +LIDO700A20 TOP; +ONDA4ODT MM; +OXAYDO5 M1 PO; +POLY500 PO; +SENNA LAXATIVE8.6 MG PO
[2025-06-29 19:47] LABS: BASOPHILS ABSOLUTE AUTO 0.04 K/mm3 (0.00-0.23); BASOPHILS PERCENT AUTO 1 % (0-2); EOSINOPHILS ABSOLUTE AUTO 0.19 K/mm3 (0.00-0.68); EOSINOPHILS PERCENT AUTO 3 % (0-6); Hematocrit 42.3 % (33.0-51.0); Hemoglobin 14.3 g/dL (11.5-16.0); IMMATURE GRAN ABSOLUTE AUTO 0.04 K/mm3 (0.00-0.10); IMMATURE GRAN PERCENT AUTO 1 % (0-1); LYMPHOCYTES ABSOLUTE AUTO 2.03 K/mm3 (0.84-5.20); LYMPHOCYTES PERCENT AUTO 30 % (21-46); MONOCYTES ABSOLUTE AUTO 0.43 K/mm3 (0.16-1.47); MONOCYTES PERCENT AUTO 6 % (4-13); Mean Corpuscular HGB Conc 33.8 g/dL (31.5-36.5); Mean Corpuscular Volume 86 fL (80-100); NEUTROPHILS ABSOLUTE AUTO 4.11 K/mm3 (1.96-9.15); NEUTROPHILS PERCENT AUTO 60 % (41-73); NRBC ABSOLUTE 0.00 K/mm3 (0.00-0.02); NRBC Auto 0.0 /100 WBC (0.0-0.2); RDW Coefficient Variation 12.8 % (11.7-14.2); RDW Standard Deviation 40.0 fL (35.1-46.3)
[2025-06-29 19:48] LABS: Platelet Count 274 K/mm3 (150-400)
[2025-06-29 20:20] LABS: C-REACTIVE PROTEIN, EXT RANGE <0.290 mg/dL (0.000-0.300)
[2025-06-29 20:23] LABS: Alanine Aminotransfer (ALT/SGP 32 U/L (12-78); Albumin, Blood 3.6 g/dL (3.4-5.0); Albumin/Globulin Ratio 1.1 (0.8-1.8); Anion Gap 9 mmol/L (3-11); Aspartate Aminotrans (AST/SGOT 32 U/L (12-37); Bilirubin, Total 0.3 mg/dL (0.1-1.0); Blood Urea Nitrogen 18 mg/dL (8-24); CO2, Blood 22 mmol/L (21-32); Calcium, Blood 9.1 mg/dL (8.5-10.1); Chloride, Blood 109 mmol/L (98-108); Creatinine, Blood 0.79 mg/dL (0.40-1.00); Globulin, Blood 3.4 g/dL (2.2-4.0); Glucose, Blood 120 mg/dL (70-99); Potassium, Blood 3.8 mmol/L (3.5-5.5); Sodium, Blood 136 mmol/L (136-145); Total Protein, Blood 7.0 g/dL (6.4-8.2)
[2025-06-29] MEDS ORDERED: Dexamethasone Sod Phos 10 MG/ML 1ML VIAL PO ONE (22:30)
[2025-06-29] MEDS ORDERED: OxyCODONE 10/Acetamin 325 TABLET PO ONE (22:35)
[2025-06-30] VITALS: BP 141/86
[2025-06-30] MEDS ORDERED: METPRE4DP PO (00:04)
== END 2025-06-30 00:18 | disposition home or self-care (01) ==
LOC: ER 18:59
PROVIDERS: Student in an Organized Health Care Education/Training Program
DX: M54.42 Lumbago with sciatica, left side (principal); K21.9 Gastro-esophageal reflux disease without esophagitis; G43.909 Migraine, unspecified, not intractable, without status migrainosus; I10 Essential (primary) hypertension; Z79.899 Other long term (current) drug therapy; Z88.5 Allergy status to narcotic agent; Z88.1 Allergy status to other antibiotic agents; Z88.8 Allergy status to other drugs, medicaments and biological substances
CPT/HCPCS: 80053; 85025; 85651; 86140; 99283; A9270; J1100

== ENCOUNTER → 2025-07-12 | Outpatient (CLI) | payer OTHER ==
[~2025-07-12] MED LIST changes: +METPRE4DP PO
== END ==
LOC: LAB SHORT 13:22 → LAB 13:22
DX: N39.0 Urinary tract infection, site not specified (principal); R31.9 Hematuria, unspecified
CPT/HCPCS: 87086

== ENCOUNTER 2025-07-20 14:06 | Emergency (ER) | payer OTHER ==
[~2025-07-20] VITALS: Ht 160 cm; Wt 75.5 kg
[2025-07-20] MEDS ORDERED: Ketorolac Tromethamine 15mg Vial IM ONE (14:55)
[2025-07-20 15:05] LABS: Source, Urine Clean Catch
[2025-07-20 15:10] LABS: Bilirubin, Urine Neg (Neg); Color, Urine Yellow (P-Yellow); Glucose Qualitative, Urine Neg (Neg); Ketones, Urine Neg (Neg); Leukocyte Esterase, Urine 3+ (Neg); Protein, Urine 3+ (Neg); Specific Gravity, Urine 1.025 (1.003-1.022); Urobilinogen, Urine NORM (Normal)
[2025-07-20 15:19] LABS: Red Blood Cells, Urine 50-100 /hpf (0-2); White Blood Cells, Urine TNTC /hpf (0-5)
[2025-07-20] MEDS ORDERED: IBUP600 PO (16:09)
[2025-07-20] MEDS ORDERED: ACET500 PO (16:09)
[2025-07-20] MEDS ORDERED: CEPH500 PO (16:09)
[2025-07-20] MEDS ORDERED: Lidocaine 4% 1 Patch TOP ONE (16:10)
[2025-07-20 16:41] VITALS: BP 122/74
== END 2025-07-20 16:42 | disposition home or self-care (01) ==
LOC: ER 14:06
PROVIDERS: Emergency Medicine
DX: M16.0 Bilateral primary osteoarthritis of hip (principal); N39.0 Urinary tract infection, site not specified; K21.9 Gastro-esophageal reflux disease without esophagitis; I10 Essential (primary) hypertension; Z79.899 Other long term (current) drug therapy; Z88.5 Allergy status to narcotic agent; Z88.1 Allergy status to other antibiotic agents; Z88.8 Allergy status to other drugs, medicaments and biological substances
CPT/HCPCS: 73502; 81001; 87077; 87086; 87186; 96372; 99283-25; A9270; J1885